=== PATIENT | male | born 1950 | race Caucasian/White ===

== ENCOUNTER → 2025-08-31 10:13 | Outpatient (REF) | payer MEDICARE, OTHER, SELFPAY | LOC: RCS 10:13 | PROVIDERS: ATTENDING PHYSICIAN Internal Medicine Cardiovascular Disease; FAMILY PHYSICIAN Internal Medicine | DX: E78.00 Pure hypercholesterolemia, unspecified (principal) | CPT/HCPCS: 93306 ==